=== PATIENT | female | born 1995 | race Caucasian/White ===

== ENCOUNTER → 2017-10-03 17:17 | Outpatient (CLI) | payer OTHER | END | disposition home or self-care (01) | LOC: RAD 17:17 | DX: R05 Cough (principal); R50.9 Fever, unspecified ==

== ENCOUNTER 2017-10-24 15:47 | Outpatient (CLI) | payer OTHER | END 2017-10-24 15:49 | disposition home or self-care (01) | LOC: LAB 15:47 | DX: R07.0 Pain in throat (principal); R50.9 Fever, unspecified ==